=== PATIENT | female | born 2000 | race African-American/Black ===

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

== ENCOUNTER 2019-01-25 18:23 | Emergency (ER) | payer OTHER, SELFPAY | END 2019-01-25 20:05 | disposition home or self-care (01) | LOC: ERS 18:23 | DX: Z20.2 Contact with and (suspected) exposure to infections with a predominantly sexual mode of transmission (principal); F31.9 Bipolar disorder, unspecified; Z79.899 Other long term (current) drug therapy | CPT/HCPCS: 99281 ==

== ENCOUNTER 2019-06-14 16:12 | Emergency (ER) | payer OTHER, SELFPAY | END 2019-06-14 17:18 | disposition home or self-care (01) | LOC: ERS 16:12 | DX: S39.012A Strain of muscle, fascia and tendon of lower back, initial encounter (principal); S31.030A Puncture wound without foreign body of lower back and pelvis without penetration into retroperitoneum, initial encounter; F31.9 Bipolar disorder, unspecified; V43.52XA Car driver injured in collision with other type car in traffic accident, initial encounter | CPT/HCPCS: 99283 ==

== ENCOUNTER 2019-08-02 19:52 | Emergency (ER) | payer SELFPAY ==
[2019-08-02] MEDS ORDERED: Ibuprofen 200 MG TAB ONE (20:16)
[2019-08-02] MEDS ORDERED: Acetaminophen 325 MG TAB ONE ×2 (20:16)
== END 2019-08-02 20:51 | disposition home or self-care (01) ==
LOC: ERS 19:52
DX: M79.18 Myalgia, other site (principal); Y04.8XXA Assault by other bodily force, initial encounter
CPT/HCPCS: 99283

== ENCOUNTER 2019-08-26 12:05 | Emergency (ER) | payer SELFPAY | END 2019-08-26 12:28 | disposition home or self-care (01) | LOC: ERS 12:05 | DX: O26.891 Other specified pregnancy related conditions, first trimester (principal); R11.0 Nausea; Z3A.08 8 weeks gestation of pregnancy | CPT/HCPCS: 99283 ==

== ENCOUNTER 2019-10-06 23:12 | Emergency (ER) | payer SELFPAY ==
[2019-10-06] MEDS ORDERED: Ondansetron ODT 4 MG TAB ONE (23:29)
== END 2019-10-07 00:52 | disposition home or self-care (01) ==
LOC: ERS 23:12
DX: O21.9 Vomiting of pregnancy, unspecified (principal)
CPT/HCPCS: 99283; Q0162

== ENCOUNTER 2019-11-03 14:55 | Emergency (ER) | payer SELFPAY | END 2019-11-03 16:14 | disposition home or self-care (01) | LOC: ERS 14:55 | DX: J02.9 Acute pharyngitis, unspecified (principal) | CPT/HCPCS: 87081; 87430; 87804; 99283 ==

== ENCOUNTER 2020-01-18 14:32 | Observation (INO) | payer SELFPAY ==
[~2020-01-18 14:32] MED LIST changes: +Iopamidol-370 76% 500 ML 1 ML ONE; -NS w/ Oxytocin 10 units 500 ML IV SCH
[2020-01-18] MEDS ORDERED: Fentanyl 100 MCG/2 ML VIAL ONE ×2 (14:45→15:38)
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
[2020-01-18] MEDS ORDERED: Ondansetron PF 4 MG/2 ML Vial IVP PRN (15:56)
[2020-01-18] MEDS ORDERED: Morphine 2 MG/ML SYRINGE SLOW IVP PRN (15:56)
[2020-01-18] MEDS ORDERED: hydrALAZINE 20 MG/ML VIAL SLOW IVP PRN (15:56)
[2020-01-18] MEDS ORDERED: Dextrose 50% Abboject 50 ML SYRINGE SLOW IVP PRN (15:56)
[2020-01-18] MEDS ORDERED: Ondansetron ODT 4 MG TAB PO PRN (15:56)
[2020-01-18] MEDS ORDERED: Dextrose 5% in Water 1,000 ML IV PRN (15:56)
[2020-01-18 15:58] LABS: #Basophils 0.1 thou/uL (0.0-0.2); #Monocytes 0.2 thou/uL (0.11-0.59); #Neutrophils 7.5 thou/uL (1.40-6.50); %Basophils 0.9 % (0.0-1.0); %Eosinophils 0.4 % (0.0-10.0); %Lymphocytes 20.4 % (28.0-48.0); %Monocytes 2.4 % (0.0-4.0); %Neutrophils 75.9 % (31.0-61.0); Hemoglobin 14.3 g/dL (12.0-16.0); Mean Corpuscular Hemoglobin 30.5 pg (25.0-35.0); Mean Corpuscular Volume 89.6 fL (78.0-98.0); Mean Platelet Volume 8.5 fL (7.4-10.4); Platelet Count 285 thou/uL (130-400); RBC Distribution Width 11.2 % (11.5-14.5); Red Blood Cell (RBC) Count 4.69 mill/uL (4.00-5.20); White Blood Cell (WBC) Count 9.9 thou/uL (4.8-10.8)
[2020-01-18] MEDS ORDERED: Sodium Chloride 0.9% 1,000 ML IV SCH (16:00)
[2020-01-18 16:04] LABS: BHCG - Serum Negative (NEGATIVE); Pregs Control Background? CLEAR/WHITE (CLR/WHITE); Pregs Control Bar Appear? YES (CONTROL BAR)
[2020-01-18] MEDS ORDERED: Morphine 4 MG/ML VIAL ONE (16:05)
[2020-01-18] MEDS ORDERED: Lorazepam 2 MG/ML VIAL ONE (16:05)
[2020-01-18] MEDS ORDERED: Ketorolac Tromethamine 30 MG/ML VIAL ONE (16:05)
[2020-01-18 16:21] LABS: Magnesium 1.8 mg/dL (1.7-2.2); Phosphorus 2.9 mg/dL (2.3-4.7)
[2020-01-18 16:25] LABS: ALT (SGPT) 20 U/L (8-55); AST (SGOT) 28 U/L (5-34); Albumin 4.4 g/dL (3.5-5.0); Alkaline Phosphatase 61 U/L (40-100); Anion Gap 14 mmol/L (10-20); BUN (Urea Nitrogen) 13 mg/dL (7.0-18.7); Bilirubin, Total 0.6 mg/dL (0.2-1.2); Calc. Creatinine Clearance 0 mL/min (70-130); Calcium 9.3 mg/dL (7.8-10.44); Carbon Dioxide 21 mmol/L (22-29); Chloride 109 mmol/L (98-107); Estimated GFR-MDRD Greater than 90; Globulin 3.5 g/dL (2.4-3.5); Glucose 174 mg/dL (70-105); Potassium 3.6 mmol/L (3.5-5.1); Protein, Total 7.9 g/dL (6.0-8.3); Sodium 140 mmol/L (136-145)
[2020-01-18] MEDS ORDERED: Adacel (T-DAP) 0.5 ML SYRINGE ONE (16:26)
[2020-01-18] MEDS ORDERED: Bacitracin 1 PK ONE (16:46)
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
[2020-01-18] MEDS ORDERED: CEFAZOLIN 2 GM in Premix Bag 1 BAG IVPB SCH (17:45)
[2020-01-18] MEDS ORDERED: Ibuprofen 600 MG TAB PO PRN (17:55)
[2020-01-18] MEDS ORDERED: Cyclobenzaprine 10 MG TAB PO PRN (17:55)
[2020-01-18] MEDS ORDERED: traMADol HCl 50 MG TAB PO PRN (17:55)
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
[2020-01-18] MEDS: Senokot S 8.6-50 MG TAB PO SCH ×2 (21:01→21:02)
[2020-01-18] MEDS: Acetaminophen 500 MG TAB PO SCH (21:02)
[2020-01-18] MEDS: traMADol HCl 50 MG TAB PO SCH (21:02)
[2020-01-19 00:40] VITALS: BMI 36.4
[2020-01-19] MEDS: traMADol HCl 50 MG TAB PO SCH ×5 (06:24→23:38)
[2020-01-19] MEDS: Acetaminophen 500 MG TAB PO SCH ×5 (06:24→23:35)
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
--- NOTE | 2020-01-19 07:37 | RAD ---
Chest one view HISTORY: Pneumothorax. Follow-up. COMPARISON: 01/18/2020. Findings: Cardiac silhouette is magnified by projection. Pulmonary vasculature is unremarkable. Mediastinum is midline. No lobar consolidation. The tiny right pneumothorax seen on the most recent CT is not evident radiographically on today's exa m. IMPRESSION : No active cardiopulmonary abnormalities
[2020-01-19] MEDS ORDERED: Morphine 2 MG/ML SYRINGE SLOW IVP PRN (07:41)
[2020-01-19] MEDS: Polyethylene Glycol 3350 17 GM Packet PO SCH (07:49)
[2020-01-19] MEDS: Senokot S 8.6-50 MG TAB PO SCH ×2 (07:49→21:47)
[2020-01-19 08:28] LABS: #Basophils 0.1 thou/uL (0.0-0.2); #Lymphocytes 2.1 thou/uL (1.20-3.40); #Monocytes 0.4 thou/uL (0.11-0.59); #Neutrophils 3.1 thou/uL (1.40-6.50); %Eosinophils 0.7 % (0.0-10.0); %Lymphocytes 36.5 % (28.0-48.0); %Monocytes 7.2 % (0.0-4.0); %Neutrophils 54.6 % (31.0-61.0); Hemoglobin 11.6 g/dL (12.0-16.0); Mean Corpuscular HGB CONC 33.5 g/dL (32.0-36.0); Mean Corpuscular Hemoglobin 30.6 pg (25.0-35.0); Mean Corpuscular Volume 91.5 fL (78.0-98.0); Mean Platelet Volume 7.5 fL (7.4-10.4); Platelet Count 210 thou/uL (130-400); RBC Distribution Width 11.3 % (11.5-14.5); Red Blood Cell (RBC) Count 3.79 mill/uL (4.00-5.20); White Blood Cell (WBC) Count 5.7 thou/uL (4.8-10.8)
[2020-01-19] MEDS: Famotidine/PF 20 mg/2ml Vial SLOW IVP SCH ×2 (08:30→20:09)
[2020-01-19] MEDS: Ibuprofen 600 MG TAB PO SCH ×4 (08:30→23:37)
[2020-01-19 08:49] LABS: Anion Gap 9 mmol/L (10-20); BUN (Urea Nitrogen) 9 mg/dL (7.0-18.7); Calc. Creatinine Clearance 204 mL/min (70-130); Calcium 8.1 mg/dL (7.8-10.44); Carbon Dioxide 24 mmol/L (22-29); Chloride 111 mmol/L (98-107); Estimated GFR-MDRD Greater than 90; Glucose 98 mg/dL (70-105); Potassium 3.4 mmol/L (3.5-5.1); Sodium 141 mmol/L (136-145)
[2020-01-19] MEDS ORDERED: Potassium Phosphate 30 MMOL in Sodium Chloride 0.9% 250 ML 250 ML IVPB SCH (10:30)
[2020-01-19] MEDS ORDERED: Magnesium 2 GM/50 ML 2 GM in Premix Bag 1 BAG IVPB SCH (10:30)
[2020-01-19] MEDS ORDERED: HYDROmorphone 0.5 MG/0.5 ML SYRINGE ONE (11:21)
[2020-01-19] MEDS ORDERED: Fentanyl 100 MCG/2 ML VIAL ONE ×4 (11:21→14:26)
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
[2020-01-19] MEDS ORDERED: Promethazine HCl 25 MG/ML VIAL SLOW IVP PRN (11:57)
[2020-01-19] MEDS ORDERED: Ondansetron HCl/PF 4 MG/2 ML Vial IVP PRN (11:57)
[2020-01-19] MEDS ORDERED: Promethazine HCl 25 MG/ML VIAL IM PRN (11:57)
[2020-01-19] MEDS ORDERED: Succinylcholine Chloride 20 MG/ML 10 ml SYRINGE FS ONE (12:13)
[2020-01-19] MEDS ORDERED: Ondansetron PF 4 MG/2 ML Vial ONE ×2 (12:13→13:30)
[2020-01-19] MEDS ORDERED: Esmolol 100 MG/10 ML VIAL ONE (12:13)
[2020-01-19] MEDS ORDERED: PROPOFOL 200 MG/20 ML VIAL ONE (12:13)
[2020-01-19] MEDS ORDERED: Lidocaine 1% PF 5 ML VIAL ONE (12:13)
[2020-01-19] MEDS ORDERED: Dexamethasone 20 MG/5 ML VIAL ONE (12:13)
[2020-01-19] MEDS ORDERED: Rocuronium Bromide 10 MG/ML (10ML VIAL) ONE (12:13)
[2020-01-19] MEDS ORDERED: Promethazine HCl 25 MG/ML VIAL ONE (13:30)
[2020-01-19] MEDS ORDERED: CEFAZOLIN 2 GM in Premix Bag 1 BAG IVPB SCH (14:00)
--- NOTE | 2020-01-19 14:58 | RAD ---
LEFT HUMERUS: 01/19/20 Two fluoroscopic views presented from the OR. INDICATIONS: Open reduction internal fixation of the left humerus. FINDINGS/IMPRESSION: These views demonstrate an intramedullary omaira transfixing the proximal left humerus in near anatomic alignment. POS: AGW
[2020-01-19] MEDS ORDERED: TETANUS AND DIPHTHERIA TOX/PF 0.5 ML DISP.SYRIN IM ONE (15:56)
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
[2020-01-19] MEDS: CEFAZOLIN 2 GM in Premix Bag 1 BAG IVPB SCH (20:09)
[2020-01-19] MEDS: Gabapentin 300 MG CAP PO SCH (21:30)
[2020-01-20 00:03] VITALS: TEMP 98.3
[2020-01-20] MEDS: Acetaminophen 500 MG TAB PO SCH ×2 (05:01→12:08)
[2020-01-20] MEDS: traMADol HCl 50 MG TAB PO SCH ×2 (05:01→12:09)
[2020-01-20] MEDS: CEFAZOLIN 2 GM in Premix Bag 1 BAG IVPB SCH (05:02)
[2020-01-20 05:30] LABS: #Lymphocytes 1.2 thou/uL (1.20-3.40); #Monocytes 0.5 thou/uL (0.11-0.59); #Neutrophils 7.1 thou/uL (1.40-6.50); %Basophils 0.2 % (0.0-1.0); %Eosinophils 0.2 % (0.0-10.0); %Lymphocytes 13.4 % (28.0-48.0); %Monocytes 5.5 % (0.0-4.0); %Neutrophils 80.7 % (31.0-61.0); Hemoglobin 12.4 g/dL (12.0-16.0); Mean Corpuscular HGB CONC 32.7 g/dL (32.0-36.0); Mean Corpuscular Hemoglobin 29.7 pg (25.0-35.0); Mean Corpuscular Volume 90.8 fL (78.0-98.0); Platelet Count 266 thou/uL (130-400); RBC Distribution Width 11.3 % (11.5-14.5); Red Blood Cell (RBC) Count 4.15 mill/uL (4.00-5.20); White Blood Cell (WBC) Count 8.8 thou/uL (4.8-10.8)
[2020-01-20 05:51] LABS: Anion Gap 9 mmol/L (10-20); BUN (Urea Nitrogen) 7 mg/dL (7.0-18.7); Calc. Creatinine Clearance 176 mL/min (70-130); Carbon Dioxide 26 mmol/L (22-29); Chloride 107 mmol/L (98-107); Estimated GFR-MDRD Greater than 90; Glucose 139 mg/dL (70-105); Magnesium 2.4 mg/dL (1.7-2.2); Phosphorus 2.7 mg/dL (2.3-4.7); Potassium 4.4 mmol/L (3.5-5.1); Sodium 138 mmol/L (136-145)
[2020-01-20] MEDS ORDERED: PHOS-NAK 1 PKT PACK PO SCH (08:00)
[2020-01-20] MEDS: Gabapentin 300 MG CAP PO SCH (08:39)
[2020-01-20] MEDS: Ibuprofen 600 MG TAB PO SCH (08:39)
[2020-01-20] MEDS: Polyethylene Glycol 3350 17 GM Packet PO SCH (08:40)
--- NOTE | 2020-01-20 08:46 | RAD ---
SINGLE VIEW OF THE CHEST: COMPARISON: 01/19/2020. HISTORY: Followup right-sided pneumothorax. FINDINGS: A single view of the chest shows a normal-size cardiomediastinal silhouette. There is no evidence of consolidation, mass, pneumothorax, or pleural effusion. Postsurgical changes are seen in the left s houlder. IMPRESSION: No evidence of acute cardiopulmonary disease. POS: EAA
[2020-01-20] MEDS: Senokot S 8.6-50 MG TAB PO SCH (08:50)
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
[2020-01-20 11:44] VITALS: BP 123/74
== END 2020-01-20 14:44 | disposition home or self-care (01) ==
LOC: ERS 14:32 → SURG B 16:18
PROVIDERS: ADMIT Surgery; ATTEND Surgery
PROC: 0PSD06Z Reposition Left Humeral Head with Intramedullary Internal Fixation Device, Open Approach (ICD-10-PCS; principal; 2020-01-20)
DX: S42.202A Unspecified fracture of upper end of left humerus, initial encounter for closed fracture (principal); J93.9 Pneumothorax, unspecified; S01.21XA Laceration without foreign body of nose, initial encounter; S81.812A Laceration without foreign body, left lower leg, initial encounter; G89.11 Acute pain due to trauma; V47.5XXA Car driver injured in collision with fixed or stationary object in traffic accident, initial encounter
CPT/HCPCS: 29105; 36415; 70450; 71045; 71260; 72125; 74177; 76000; 80048; 80053; 83735; 84100; 84703; 85025; 90471; 90715; 94640; 96361; 96365; 96366; 96367; 96374; 96375; 96376; C1713; G0378; G0390; J0690; J1100; J1170; J1885; J2001; J2060; J2270; J2405; J2550; J2704; J3010; J3475; J7050; J7620; Q9967; S0028

== ENCOUNTER 2020-01-29 11:31 | Emergency (ER) | payer SELFPAY | END 2020-01-29 12:05 | disposition left against medical advice (07) | LOC: ERS 11:31 | DX: Z53.21 Procedure and treatment not carried out due to patient leaving prior to being seen by health care provider (principal) ==

== ENCOUNTER 2020-07-05 21:43 | Emergency (ER) | payer SELFPAY ==
[2020-07-05 23:21] LABS: Bilirubin Negative (Negative); Blood, Urine Negative (Negative); Clarity Clear (Clear); Glucose, Urine (Dipstick) Normal (Negative); Ketone, Urine Negative (Negative); Leukocyte 75 Leu/uL (Negative); Mucous/LPF 4+ LPF (<2+); Nitrite Negative (Negative); Pregnancy Test - Urine (BHCG) Negative (Negative); Pregu Control Background? CLEAR/WHITE (CLR/WHITE); Pregu Control Bar Appear? YES (CONTROL BAR); Protein, Urine (Dipstick) 20 mg/dL (Neg-Trace); Specific Gravity 1.031 (1.002-1.036); Specific Gravity, Urine 1.031 (1.002-1.036)
[2020-07-05 23:23] LABS: #Basophils 0.1 thou/uL (0.0-0.2); #Eosinphils 0.1 thou/uL (0.0-0.7); #Lymphocytes 2.3 thou/uL (1.20-3.40); #Monocytes 0.4 thou/uL (0.11-0.59); #Neutrophils 2.5 thou/uL (1.40-6.50); %Basophils 1.3 % (0.0-1.0); %Lymphocytes 43.1 % (21.0-51.0); %Monocytes 7.5 % (0.0-10.0); %Neutrophils 47.1 % (42.0-75.0); Hemoglobin 12.9 g/dL (12.0-16.0); Mean Corpuscular HGB CONC 34.6 g/dL (32.0-36.0); Mean Corpuscular Hemoglobin 30.8 pg (27.0-31.0); Mean Corpuscular Volume 88.8 fL (78.0-98.0); Mean Platelet Volume 7.8 fL (7.4-10.4); Platelet Count 267 thou/uL (130-400); RBC Distribution Width 11.5 % (11.5-14.5); White Blood Cell (WBC) Count 5.3 thou/uL (4.8-10.8)
[2020-07-05 23:24] LABS: Bacteria/HPF 1+ HPF (None Seen)
[2020-07-05 23:45] LABS: ALT (SGPT) 13 U/L (8-55); AST (SGOT) 17 U/L (5-34); Albumin 4.1 g/dL (3.5-5.0); Alkaline Phosphatase 55 U/L (40-110); Anion Gap 10 mmol/L (10-20); BUN (Urea Nitrogen) 10 mg/dL (7.0-18.7); Bilirubin, Total 0.8 mg/dL (0.2-1.2); Calc. Creatinine Clearance 0 mL/min (70-130); Carbon Dioxide 25 mmol/L (22-29); Chloride 107 mmol/L (98-107); Estimated GFR-MDRD Greater than 90; Globulin 3.2 g/dL (2.4-3.5); Glucose 94 mg/dL (70-105); Potassium 3.3 mmol/L (3.5-5.1); Protein, Total 7.3 g/dL (6.0-8.3); Sodium 139 mmol/L (136-145)
[2020-07-06] MEDS ORDERED: Ondansetron PF 4 MG/2 ML Vial ONE (00:01)
[2020-07-06] MEDS ORDERED: Ketorolac Tromethamine 30 MG/ML VIAL ONE (00:01)
[2020-07-06] MEDS ORDERED: Ondansetron ODT 4 MG TAB ONE (00:02)
--- NOTE | 2020-07-06 07:54 | ULT ---
PRELIMINARY REPORT/[facility]/EMERGENCY AFTER HOURS PROCEDURE: EXAM: US Abdomen Limited, Right Upper Quadrant. CLINICAL HISTORY: RUQ pain, nausea TECHNIQUE: Real-time ultrasound of the right upper quadrant with image documentation. COMPARISON: None provided. FINDINGS: LIVER: Unremarkable. Measures 15.7 cm GALLBLADDER: No gallstone. No wall thickening. No pericholecystic fluid. COMMON BILE DUCT: No dilation. Measures 3.4 mm PANCREAS: Unremarkable as visualized. The distal pancreas is obscured by overlying bowel gas. RIGHT KIDNEY: Unremarkable. No hydronephrosis. Measures 8.7 cm IMPRESSION: Unremarkable right upper quadrant ultrasound. ELECTRONICALLY SIGNED BY: Herson Paez MD Jul 06, 2020 12:48:36 AM [employer] FINAL REPORT EMERGENT AFTER HOURS RIGHT UPPER QUADRANT ABDOMINAL ULTRASOUND: FINDINGS/IMPRESSION: I agree with the findings and impression given in the preliminary report per [facility] physici an. Unremarkable exam. POS: ASHLEY
== END 2020-07-06 01:29 | disposition home or self-care (01) ==
LOC: ERS 21:43
DX: R10.10 Upper abdominal pain, unspecified (principal); F32.9 Major depressive disorder, single episode, unspecified
CPT/HCPCS: 36415; 76705; 80053; 81003; 81015; 81025; 83690; 85025; 96372; J1885; J2405; Q0162

== ENCOUNTER 2020-08-08 14:41 | Emergency (ER) | payer SELFPAY | END 2020-08-08 15:21 | disposition home or self-care (01) | LOC: ERS 14:41 | DX: J01.90 Acute sinusitis, unspecified (principal) | CPT/HCPCS: 99283 ==

== ENCOUNTER 2021-06-25 22:38 | Emergency (ER) | payer SELFPAY ==
[2021-06-25 23:11] LABS: #Basophils 0.1 thou/uL (0.0-0.2); #Eosinphils 0.1 thou/uL (0.0-0.7); #Lymphocytes 2.9 thou/uL (1.20-3.40); #Monocytes 0.5 thou/uL (0.11-0.59); #Neutrophils 2.8 thou/uL (1.40-6.50); %Basophils 1.1 % (0.0-1.0); %Eosinophils 1.1 % (0.0-10.0); %Lymphocytes 46.3 % (21.0-51.0); %Monocytes 7.2 % (0.0-10.0); %Neutrophils 44.4 % (42.0-75.0); Hemoglobin 13.4 g/dL (12.0-16.0); Mean Corpuscular HGB CONC 34.3 g/dL (32.0-36.0); Mean Corpuscular Hemoglobin 31.6 pg (27.0-31.0); Mean Platelet Volume 7.5 fL (7.4-10.4); Platelet Count 286 thou/uL (130-400); RBC Distribution Width 11.6 % (11.5-14.5); Red Blood Cell (RBC) Count 4.24 mill/uL (4.20-5.40); White Blood Cell (WBC) Count 6.4 thou/uL (4.8-10.8)
[2021-06-25 23:12] LABS: Bacteria/HPF None Seen HPF (None Seen); Bilirubin Negative (Negative); Blood, Urine 3+ (Negative); Clarity Clear (Clear); Glucose, Urine (Dipstick) Normal (Negative); Ketone, Urine Negative (Negative); Leukocyte 250 Leu/uL (Negative); Mucous/LPF Rare LPF (<2+); Nitrite Negative (Negative); Protein, Urine (Dipstick) 10 mg/dL (Neg-Trace); Specific Gravity, Urine 1.029 (1.002-1.036)
[2021-06-25 23:32] LABS: ALT (SGPT) 17 U/L (8-55); AST (SGOT) 18 U/L (5-34); Alkaline Phosphatase 64 U/L (40-110); Anion Gap 11 mmol/L (10-20); BUN (Urea Nitrogen) 10 mg/dL (7.0-18.7); Bilirubin, Total 0.2 mg/dL (0.2-1.2); Calc. Creatinine Clearance 0 mL/min (70-130); Calcium 9.7 mg/dL (7.8-10.44); Carbon Dioxide 24 mmol/L (22-29); Chloride 105 mmol/L (98-107); Globulin 3.4 g/dL (2.4-3.5); Glucose 101 mg/dL (70-105); Protein, Total 7.4 g/dL (6.0-8.3); Sodium 136 mmol/L (136-145)
== END 2021-06-26 01:30 | disposition home or self-care (01) ==
LOC: ERS 22:38
DX: O20.0 Threatened abortion (principal); Z3A.01 Less than 8 weeks gestation of pregnancy
CPT/HCPCS: 36415; 76856; 80053; 81003; 81015; 84702; 85025; 86900; 86901